=== PATIENT | female | born 1985 | race Two or more races ===

== ENCOUNTER 2018-06-07 05:06 | Emergency (ER) | payer MEDICAID ==
[~2018-06-07] VITALS: Ht 154.9 cm; Wt 76.2 kg
[2018-06-07 05:06] VITALS: BP 116/72
[2018-06-07] MEDS ORDERED: Tetanus/Diptheria/Pertussis Vaccine 0.5ml Syr IM ONE (05:30)
[2018-06-07] MEDS ORDERED: Norco 5mg/325mg tab ORAL ONE (05:30)
[2018-06-07] MEDS ORDERED: Bacitracin Oint UD TOPIC ONE ×2 (06:11→06:15)
[2018-06-07 06:20] VITALS: BP 109/70
--- NOTE | 2018-06-07 06:24 | Emergency Room Report ---
History of Present Illness General Chief Complaint: Laceration Source: Patient Present Illness HPI Is a 33-year-old female with no significant past. Patient. She presents with chief complaint laceration to the left knee. She was untangling some cords to the steamer. She stepped on the toilet seat and it's slipped out. She fell and cut her knee on a metal portion of a shelf. She sustained a laceration to her knee. Pain is 10 out of 10. No nausea no vomiting. No fever or chills. Worse with movement. Better holding still. Tetanus not up-to-date. Allergies: Coded Allergies: No Known Allergies (Unverified , 06/07/18) Patient History Past Medical History: see triage record, old chart reviewed Past Surgical History: none Pertinent Family History: none Social History: Denies: smoking Last Menstrual Period: 05/31/18 Now: No Immunizations: other Reviewed Nursing Documentation: PMH: Agreed; PSxH: Agreed Nursing Documentation-PMH Past Medical History: No Stated History Review of Systems Eye: Denies: eye pain, blurred vision ENT: Denies: ear pain, nose congestion, throat swelling Respiratory: Denies: cough, shortness of breath Cardiovascular: Denies: chest pain, palpitations Gastrointestinal: Denies: abdominal pain, diarrhea, nausea, vomiting Musculoskeletal: Reports: joint pain, muscle pain; Denies: back pain Skin: Denies: rash Neurological: Denies: headache, numbness Endocrine: Denies: increased thirst, increased urine Hematologic/Lymphatic: Denies: easy bruising All Other Systems: negative except mentioned in HPI Physical Exam Vital Signs Date Time Temp Pulse Resp B/P (MAP) Pulse Ox O2 Delivery O2 Flow Rate FiO2 06/07/18 04:49 98.2 69 18 116/72 98 Room Air 98.2 vitals normal Sp02 EP Interpretation: reviewed, normal General Appearance: well appearing, no apparent distress, alert Head: normocephalic, atraumatic Eyes: bilateral eye PERRL, bilateral eye EOMI ENT: hearing grossly normal, normal pharynx Neck: full range of motion, supple, no meningismus Respiratory: chest non-tender, lungs clear, normal breath sounds Cardiovascular #1: regular rate, rhythm, no murmur Gastrointestinal: normal bowel sounds, non tender, no mass, no organomegaly, no bruit, non-distended Musculoskeletal: back normal, normal range of motion, other - Left knee: There is a 10 cm laceration with a large flap. No foreign body. I put the knee through range of motion and did not see any obvious tendon laceration of the patella tendon. Neurologic: alert, oriented x3 Psychiatric: mood/affect normal Skin: warm/dry Procedures Splinting Splinting : Consent: Verbal Location: left knee Pre-Made Type: knee immobilizer Pre-Proc Neuro Vasc Exam: normal Post-Proc Neuro Vasc Exam: normal Patient Tolerated: Well Complications: None Laceration/Wound Repair Laceration/Wound Repair : Consent: Verbal Wound Location: lower extremity Wound's Depth, Shape: into muscle, irregular, flap, contused tissue Wound Length (cm): 10 Wound Explored: clean Irrigated w/ Saline (ccs): 2000 Anesthesia: Lidocaine w/ Epi Volume Anesthetic (ccs): 10 Wound Repaired With: sutures Suture Size/Type: 3:0, proline Number of Sutures: 12 Splint Applied?: Yes Type of Splint Applied: knee immobilizer Patient Tolerated: Well Complications: None Progress I placed 3 mattress sutures and 9 simple interrupted sutures. Medical Decision Making Diagnostic Impression: Primary Impression: Laceration of knee, left Qualified Codes: S81.012A - Laceration without foreign body, left knee, initial encounter ER Course Patient with a left knee laceration. No obvious foreign body. X-ray suspicious for possible inferior patella tendon laceration. Patient splinted and given crutches. Other X-Ray Diagnostic Results Other X-Ray Diagnostic Results : X-Ray ordered: right knee x-rays # of Views/Limited Vs Complete: 3 View Indication: Pain EP Interpretation: Yes Interpretation: no dislocation, no soft tissue swelling, other - soft tissue defect Impression: Other - soft tissue defect Electronically Signed by: Jonathan Santiago MD Last Vital Signs Date Time Temp Pulse Resp B/P (MAP) Pulse Ox O2 Delivery O2 Flow Rate FiO2 06/07/18 05:24 98.2 06/07/18 05:06 69 18 116/72 98 Room Air Status: improved Disposition: HOME, SELF-CARE Condition: Stable Scripts No Active Prescriptions or Reported Meds Referrals: [facility],REFERR[facility] (PCP) Patient Instructions: Laceration Care, Adult Additional Instructions: Keep wound clean. Keep knee straight for 2 days. If still unable to bend knee or having decreased movement of knee after a couple weeks, may need MRI to look for tendon or ligament injury. JONATHAN SANTIAGO M.D. Jun 07, 2018 06:24
[2018-06-07] MEDS ORDERED: IBUPROFEN600 MG ORAL (06:26)
[2018-06-07] MEDS ORDERED: CEPHALEXIN500 MG ORAL (06:26)
[2018-06-07] MEDS ORDERED: NORCO 5-325 TA1 EACH ORAL (06:26)
[2018-06-07 06:36] VITALS: BP 109/70
--- NOTE | 2018-06-07 09:20 | Diagnostic Imaging Report ---
Indication: Trauma Technique: XRAY Knee Compl 4v+ L Comparison: None Findings: Soft tissue laceration anterior knee just below the level of the patella. There is some subcutaneous gas. No radiopaque foreign body identified. Laceration does overlie portions of the patellar tendon on some views however the tendon fibers do appear intact. The patella is not definitely abnormally high, with a borderline/upper limits of normal Insall-Salvati ratio of approximately 1.2, however evaluation may be limited due to suboptimal positioning on the lateral views. No acute fracture is identified. Joint spaces and anatomic alignment preserved. IMPRESSION: No acute fracture or dislocation. Soft tissue laceration just below the level of the patella. Some lucencies project over portions of the proximal patellar tendon, which does appear for the most part intact radiographically. MRI of the knee recommended for more sensitive evaluation of the patellar tendon as clinically indicated. This corresponds with the preliminary interpretation of the treating ER clinician, as documented in the electronic medical record.
== END 2018-06-07 06:39 | disposition home or self-care (01) ==
LOC: EDBD 05:06 → EMR 05:16
DX: S81.012A Laceration without foreign body, left knee, initial encounter (principal); W01.118A Fall on same level from slipping, tripping and stumbling with subsequent striking against other sharp object, initial encounter; Y93.89 Activity, other specified; Y92.012 Bathroom of single-family (private) house as the place of occurrence of the external cause; Z23 Encounter for immunization
CPT/HCPCS: 12004; 73564; 90471; 90715; 99283; Z7502